=== PATIENT | male | born 1935 | race Caucasian/White ===

== ENCOUNTER 2019-11-15 20:00 | Inpatient (IN) | payer MEDICARE, OTHER ==
[~2019-11-15] VITALS: Ht 182.9 cm; Wt 113.4 kg
[2019-11-15] MEDS ORDERED: ONDANSETRON HCL INJ 2MG/ML 2ML 2 MG/ML VIAL IV STA (20:27)
[2019-11-15] MEDS ORDERED: SODIUM CHLORIDE 0.9% 1000ML 1,000 ML IV SCH ×2 (20:30→23:30)
--- NOTE | 2019-11-15 20:47 | Emergency Department Note ---
History of Present Illnes History of Present Illness Chief Complaint: Abdominal Complaints History of Present Illness This is a 84 year old male Chief Complaint Comment PT C/O ABD PAIN ACROSS LOWER ABD THAT STATED ABOUT 3 DAYS AGO, WITH INCREASING PAIN THIS AM. PT ALSO REPORTS A DECREASE IN APPETITE. DENIES FEVER/CHILLS, NO NAUSEA VOMITING, NO DIARRHEA. Historian: Family Member Arrival Mode: Car Assistant General Manager Required: No Onset (how long ago): day(s) (3) Location: Abdomen Quality: Dull Radiation: Reports non-radiation Severity: moderate Onset quality: gradual Duration (how long): day(s) (3) Timing of current episode: constant Progression: unchanged Chronicity: new Context: Denies recent illness, Denies recent surgery Relieving factors: none Exacerbating factors: none Associated symptoms: Reports denies other symptoms Treatments prior to arrival: none Past Medical/Family History Physician Review I have reviewed the patient's past medical and family history. Any updates have been documented here. Past Medical History Recent Fever: No Clinical Suspicion of Infectio: No New/Unexplained Change in Ment: No Past Medical History: Hypertension, Cancer, Hyperlipedemia Other Medical History: PROSTATE CA, HEART MUMUR, GLACOMA, MACULAR DEGENERATION, HERNIA REPAIR, JASMIN Past Surgical History: Cholecysctectomy, Hernia Repair Social History Physically hurt or threatened: No Review of Systems Review of Systems Constitutional: Reports no symptoms EENTM: Reports no symptoms Cardiovascular: Reports no symptoms Respiratory: Reports no symptoms Gastrointestinal: Reports abdominal pain, Reports nausea Genitourinary: Reports no symptoms Musculoskeletal: Reports no symptoms Integumentary: Reports no symptoms Neurological: Reports no symptoms Psychological: Reports no symptoms Endocrine: Reports no symptoms Hematological/Lymphatic: Reports no symptoms Physical Exam Related Data Allergies: Coded Allergies: No Known Allergies (Unverified , 11/15/19) Triage Vital Signs Vital Signs Date Time Temp Pulse Resp B/P (MAP) Pulse Ox O2 Delivery O2 Flow Rate FiO2 11/15/19 20:29 97.7 75 20 148/88 97 Room Air Vital signs reviewed: Yes Physical Exam CONSTITUTIONAL Constitutional: Present well-developed, Present well-nourished HENT HENT: Present normocephalic, Present atraumatic, Present oropharynx clear/moist, Present nose normal HENT L/R: Present left ext ear normal, Present right ext ear normal EYES Eyes: Reports PERRL, Reports conjunctivae normal NECK Neck: Present ROM normal PULMONARY Pulmonary: Present effort normal, Present breath sounds normal CARDIOVASCULAR Cardiovascular: Present regular rhythm, Present heart sounds normal, Present capillary refill normal, Present normal rate GASTROINTESTINAL Abdominal: Present soft, Present distension, Present tender, Present hernia; Absent bowel sounds normal (Hyperactive) GENITOURINARY Genitourinary: Present exam deferred SKIN Skin: Present warm, Present dry MUSCULOSKELETAL Musculoskeletal: Present ROM normal NEUROLOGICAL Neurological: Present alert, Present oriented x 3, Present no gross motor or sensory deficits PSYCHOLOGICAL Psychological: Present mood/affect normal, Present judgement normal Results Laboratory Lab results reviewed: Yes Imaging Imaging results reviewed: Yes Diagnostics Tests Diagnostic test(s) reviewed: Yes Assessment & Plan Medical Decision Making MDM 84-year-old male presents for abdominal pain 3 days. States his abdomen feels more distended and he has some nausea as well. Initial differential includes volvulus versus hernia versus bowel obstruction versus diverticulitis versus abdominal aortic aneurysm among others. After workup and CT abdomen and pelvis are significant for partial small bowel obstruction. Patient was discussed with Dr. Jackson who has agreed to admit. Reassessment Reassessment time: 23:45 Reassessment Well appearing, NAD Assessment & Plan Final Impression: (1) Partial small bowel obstruction Depart Disposition: ADMITTED Last Vital Signs Date Time Temp Pulse Resp B/P (MAP) Pulse Ox O2 Delivery O2 Flow Rate FiO2 11/15/19 20:33 75 20 107/71 97 Room Air 11/15/19 20:29 97.7 Medications in the ED Sodium Chloride 1,000 ml @ 0 mls/hr Q0M IV ; Start 11/15/19 at 20:30; Stop 11/15/19 at 21:29; Status UNV Ondansetron HCl 4 mg NOW STAT IV ; Start 11/15/19 at 20:27; Stop 11/15/19 at 20:28; Status UNV ELIZABETH BEAL MD Nov 15, 2019 20:47
[2019-11-15 21:05] LABS: BASOPHILS % 0.3 % (0.0-1.0); EOSINOPHILS # (AUTO) 0.1 (0.0-0.4); EOSINOPHILS % 1.2 % (0.0-6.0); HEMATOCRIT 43.2 % (38.2-49.6); HEMOGLOBIN 14.2 g/dL (14.0-18.0); LYMPHOCYTES # (AUTO) 0.9 (1.0-3.2); LYMPHOCYTES % 9.6 % (18.0-39.1); MEAN CORPUSCULAR HEMOGLOBIN 28.7 pg (28-32); MEAN CORPUSCULAR HGB CONC 32.9 g/dL (31-35); MEAN CORPUSCULAR VOLUME 87.4 fL (81-99); MONOCYTES # (AUTO) 0.9 (0.2-0.8); MONOCYTES % 10.3 % (4.4-11.3); NEUTROPHILS # (AUTO) 7.2 (2.1-6.9); NEUTROPHILS % 78.3 % (38.7-80.0); PLATELET COUNT 180 x10e3/uL (140-360); RED BLOOD COUNT 4.94 x10e6/uL (4.3-5.7); RED CELL DISTRIBUTION WIDTH 13.4 % (11.7-14.4)
[2019-11-15 21:23] LABS: ALANINE AMINOTRANSFERASE 32 IU/L (0-55); ALBUMIN 3.8 g/dL (3.5-5.0); ALBUMIN/GLOBULIN RATIO 1.4 (0.8-2.0); ALKALINE PHOSPHATASE 141 IU/L (40-150); ANION GAP 12.9 mmol/L (8-16); BLOOD UREA NITROGEN 15 mg/dL (7-26); BUN/CREATININE RATIO 18 (6-25); CALCIUM 8.2 mg/dL (8.4-10.2); CARBON DIOXIDE 23 mmol/L (22-29); CHLORIDE 107 mmol/L (98-107); CREATININE, SERUM 0.83 mg/dL (0.72-1.25); EST GLOMERULAR FILTRATION RATE > 60 ML/MIN (60-); GLUCOSE 138 mg/dL (74-118); POTASSIUM 3.9 mmol/L (3.5-5.1); SODIUM 139 mmol/L (136-145)
[2019-11-15] MEDS ORDERED: SODIUM CHLORIDE 0.9% 50ML 50 ML ONE (22:23)
[2019-11-15] MEDS ORDERED: IOPAMIDOL 370 MG/ML 200 ML INFUS..BTL INJ ONE (22:23)
--- NOTE | 2019-11-15 22:45 | Diagnostic Imaging Report ---
EXAM: CT Abdomen and Pelvis WITH contrast INDICATION: ^Abdominal pain ^[id number] ^[id number] COMPARISON: None. TECHNIQUE: Abdomen and pelvis were scanned utilizing a multidetector helical scanner from the lung base to the pubic symphysis after administration of IV contrast. Coronal and sagittal reformations were obtained. Dose modulation, iterative reconstruction, and/or weight based adjustment of the mA/kV was utilized to reduce the radiation dose to as low as reasonably achievable. Routine protocol was performed. Scan was performed when during portal venous phase. IV CONTRAST: 100 mL of Isovue-370 ORAL CONTRAST: Water COMPLICATIONS: None RADIATION DOSE: Total DLP: 830.31 mGy*cm Estimated effective dose: (DLP x 0.015 x size factor) mSv CTDIvol has been reviewed. It is below the limits set by the Radiation Protocol Committee (RPC). FINDINGS: LINES and TUBES: None. LOWER THORAX: Partially seen atherosclerotic calcification of coronary arteries and aortic valve. HEPATOBILIARY: No focal hepatic lesions. No biliary ductal dilation. GALLBLADDER: Absent. SPLEEN: Splenomegaly, measuring 13.6 cm. PANCREAS: No focal masses or ductal dilatation. ADRENALS: Questionable tiny right adrenal nodule. No left adrenal nodule. KIDNEYS/URETERS: Kidneys enhance symmetrically. No hydronephrosis. 2.6 cm right renal inferior pole cyst. Another right renal inferior pole 3.1 cm hypodensity with internal attenuation greater than simple fluid. There are additional bilateral renal cysts. No stones. GI TRACT: Multiple dilated air-filled small bowel loops throughout the abdomen along with collapsed distal ileal loops in right lower quadrant. There are diverticula within the colon without evidence of diverticulitis. Appendix is not clearly identified. There is however no fat stranding or adenopathy in the right lower quadrant to suggest appendicitis. PELVIC ORGANS/BLADDER: Unremarkable. LYMPH NODES: No lymphadenopathy. VESSELS: There is mild to moderate atherosclerotic disease in the aorta and major arterial branches. PERITONEUM / RETROPERITONEUM: No free air or fluid. BONES: Age indeterminate T12 vertebral body compression deformity. Generalized demineralization. Degenerative changes of spine. Left iliac sclerotic focus (series 2, image 71), could represent a bone island. Few additional scattered sclerotic foci are visualized. SOFT TISSUES: Unremarkable. IMPRESSION: 1. Findings as described above, concerning for partial small bowel obstruction. Recommend follow-up as clinically indicated. 2. Colonic diverticulosis without evidence of diverticulitis. 3. Multiple right renal cysts. A 3.1 cm right renal inferior pole hypodensity shows internal density greater than simple fluid and could represent a hemorrhagic cyst. Recommend nonurgent renal mass protocol MRI to exclude enhancing component. 4. Prostatomegaly. 5. Age indeterminate T12 vertebral body compression deformity. 6. Left iliac sclerotic focus, could represent a bone island. Recommend bone scan to confirm. Signed by: Dr. Anish Chapin MD on 11/15/2019 10:42 PM
[2019-11-15 23:25] LABS: BILIRUBIN,URINE SMALL (NEGATIVE); CLARITY,URINE CLEAR (CLEAR); COLOR,URINE AMBER (YELLOW); KETONES,URINE NEGATIVE (NEGATIVE); LEUKOCYTE ESTERASE ,URINE NEGATIVE (NEGATIVE); NITRITE,URINE NEGATIVE (NEGATIVE); PROTEIN,URINE DIPSTICK NEGATIVE (NEGATIVE)
[2019-11-15 23:34] LABS: BACTERIA,URINE FEW /HPF; EPITHELIAL CELLS,URINE FEW /LPF; MUCUS,URINE RARE (RARE); RBC,URINE 0-5 /HPF (0-5); WBC,URINE (MAN) 0-5 /HPF (0-5)
[2019-11-16] MEDS ORDERED: ONDANSETRON HCL INJ 2MG/ML 2ML 2 MG/ML VIAL ONE (00:25)
[2019-11-16] MEDS ORDERED: ATORVASTATIN CA40 MG PO (04:17)
[2019-11-16] MEDS ORDERED: BETIMOL5 M1 OU (04:17)
[2019-11-16] MEDS ORDERED: NEOMYC-POLYM-DEX5 ML OU (04:17)
[2019-11-16] MEDS ORDERED: LOSARTAN POTAS100 MG PO (04:17)
[2019-11-16] MEDS ORDERED: AMLODIPINE BESY10 MG PO (04:17)
[2019-11-16] MEDS ORDERED: TAMSULOSIN PO (04:17)
[2019-11-16] MEDS ORDERED: CARVEDILOL25 MG PO (04:17)
[2019-11-16] MEDS ORDERED: TRAVATAN Z5 ML OU (04:17)
[2019-11-16 05:56] LABS: BASOPHILS % 0.1 % (0.0-1.0); EOSINOPHILS % 0.4 % (0.0-6.0); HEMATOCRIT 37.6 % (38.2-49.6); HEMOGLOBIN 12.2 g/dL (14.0-18.0); LYMPHOCYTES # (AUTO) 0.6 (1.0-3.2); LYMPHOCYTES % 7.7 % (18.0-39.1); MEAN CORPUSCULAR HEMOGLOBIN 28.6 pg (28-32); MEAN CORPUSCULAR HGB CONC 32.4 g/dL (31-35); MEAN CORPUSCULAR VOLUME 88.1 fL (81-99); MONOCYTES # (AUTO) 0.8 (0.2-0.8); MONOCYTES % 10.2 % (4.4-11.3); NEUTROPHILS # (AUTO) 6.3 (2.1-6.9); NEUTROPHILS % 81.3 % (38.7-80.0); PLATELET COUNT 121 x10e3/uL (140-360); RED BLOOD COUNT 4.27 x10e6/uL (4.3-5.7); RED CELL DISTRIBUTION WIDTH 13.3 % (11.7-14.4)
[2019-11-16 06:22] LABS: ANION GAP 13.6 mmol/L (8-16); BLOOD UREA NITROGEN 14 mg/dL (7-26); BUN/CREATININE RATIO 20 (6-25); CALCIUM 7.5 mg/dL (8.4-10.2); CARBON DIOXIDE 23 mmol/L (22-29); CHLORIDE 110 mmol/L (98-107); CREATININE, SERUM 0.69 mg/dL (0.72-1.25); EST GLOMERULAR FILTRATION RATE > 60 ML/MIN (60-); GLUCOSE 108 mg/dL (74-118); POTASSIUM 3.6 mmol/L (3.5-5.1); SODIUM 143 mmol/L (136-145)
--- NOTE | 2019-11-16 07:15 | NUR ---
RECEIVED REPORT FROM OFF GOING NURSE. PATIENT IN ROOM IN BED, RESTING QUIETLY WITH EYES CLOSED. EASILY ARROUSED TO NAME. FAMILY IN ROOM AT BEDSIDE. PENDING ROOM ASSIGNMENT FOR ADMISSION.
[2019-11-16] MEDS ORDERED: ONDANSETRON HCL INJ 2MG/ML 2ML 2 MG/ML VIAL IV PRN (10:15)
--- NOTE | 2019-11-16 10:58 | Diagnostic Imaging Report ---
Exam: KUB - 2 views Indication: Small bowel obstruction Comparison: CT abdomen and pelvis 11/15/2019 Findings: Dilated loops of small bowel in the lower abdomen measure up to 4.8 cm maximum diameter. No free air. Surgical clips in the upper abdomen. No acute osseous injury. Degenerative changes of the spine and both hip joints. Residual IV contrast material in the bladder. Impression: Dilated loops of small bowel measuring up to 4.8 cm consistent with known small bowel obstruction. No free air. Signed by: Clarence Alvarado MD on 11/16/2019 10:55 AM
[2019-11-16 11:27] VITALS: BP 124/67
[2019-11-16 11:28] VITALS: BP 124/67
--- NOTE | 2019-11-16 11:28 | NUR ---
1105-PHONE REPORT RECEIVED FROM KULDEEP ALVARADO, ER 1127-PATIENT TRANSPORTED FROM ER TO 299 VIA WHEELCHAIR BY KULDEEP ALVARADO. PATIENT AAOX4 AND ABLE TO WALK AROUND THE ROOM IN NO ACUTE DISTRESS. PATIENT WAS ORIENTED TO UNIT/ROOM/CALL LIGHT. PATIENT REQUESTED TO SIT IN THE RECLINER. PATIENT WAS EDUCATED ON FALL RISK PRECAUTIONS AND PATIENT VERBALIZED UNDERSTANDING. CALL LIGHT AND BELONGINGS PLACED NEARBY. WILL CONTINUE TO MONITOR.
[2019-11-16 11:56] VITALS: BP 124/67
[2019-11-16] MEDS: DEXTROSE 5%/0.45% SOD CHL 1,000 ML IV SCH ×2 (12:00→20:37)
[2019-11-16] MEDS: FAMOTIDINE 20 MG/2 ML VIAL IV SCH ×2 (12:00→17:41)
--- NOTE | 2019-11-16 14:00 | NUR ---
ORDER RECEIVED FOR NG TUBE PLACEMENT TO LWS PER DR. CANO
--- NOTE | 2019-11-16 14:30 | NUR ---
14 FR NG TUBE TO LWS PLACED TO LEFT NARE. TUBE SECURED WITH TAPE.
[2019-11-16] MEDS: SODIUM CHLORIDE 0.9% 250ML IRRIG IR SCH ×3 (15:18→22:45)
--- NOTE | 2019-11-16 17:59 | Consultation ---
DATE OF CONSULTATION: 11/16/2019 CHIEF COMPLAINT: Abdominal pain. HISTORY OF PRESENT ILLNESS: The patient is an 84-year-old male with 4-day history of abdominal distention, nausea, no vomiting, decreased bowel activity. He has passed some flatus, however. No prior episode. PAST MEDICAL HISTORY: Positive for hypertension and hyperlipidemia. PAST SURGICAL HISTORY: Positive for open cholecystectomy, bilateral inguinal hernia repair. ALLERGIES: HE HAS NO DRUG ALLERGIES. SOCIAL HABITS: No smoking or alcohol abuse. REVIEW OF SYSTEMS: No chest pain, shortness of breath, cough, or fevers. PHYSICAL EXAMINATION: VITAL SIGNS: Stable, afebrile. He is awake, alert, in mild to moderate discomfort. HEENT: Sclerae nonicteric. NECK: Supple. LUNGS: Clear. HEART: Regular rate and rhythm. ABDOMEN: Distended with some guarding in the supraumbilical region without any rebound. EXTREMITIES: No cyanosis or edema. LABORATORY DATA: White cell count is 7.6, hemoglobin of 12, platelet count of 121, creatinine is 0.7. CT scan of the abdomen showed dilated loops of small bowel suggestive of intestinal obstruction. ASSESSMENT: Abdominal distention with evidence of intestine obstruction on CT scan. PLAN: Nasogastric tube decompression in place. Plan to follow abdominal x-ray and exam. The patient may need diagnostic laparoscopy with lysis of adhesions. Roni Lozano MD DNL/MODL /[id number]
--- NOTE | 2019-11-16 18:00 | NUR ---
PATIENT STATED "HE SNEEZED AND NG TUBE CAME OUT". 14FRENCH NG TUBE REPLACED TO LWS. PLACEMENT CHECK WITH AIR BUBBLE PER AUSCULTATION. PT EDUCATED ON CALLING NURSE WITH ANY FURTHER NEEDS. PATIENT VERBALIZED UNDERSTANDING.
[2019-11-16] MEDS: HEPARIN SOD (PORCINE) 5,000 UNIT/ML VIAL SC SCH (20:38)
[2019-11-16 20:57] VITALS: BP 133/70
[2019-11-16 21:00] VITALS: BP 133/70
[2019-11-17] VITALS (9 sets, daily range): BP systolic 114–138; BP diastolic 57–77
--- NOTE | 2019-11-17 01:15 | History and Physical ---
PRIMARY CARE PHYSICIAN: Dr. Blake Dickson. CHIEF COMPLAINT: Abdominal pain. HISTORY OF PRESENT ILLNESS: This is an 84-year-old male, who has cholecystectomy and hernia repair in the past, came in with periumbilical abdominal pain for the last 3 to 4 days. It is progressively getting worse. The patient has some nausea, no vomiting, but very little p.o. intake. Last bowel movement was yesterday, however, was very small now. The patient denies a fever. No chest pain. No shortness of breath. The patient does not have history of bowel obstruction in the past. PAST MEDICAL/SURGICAL HISTORY: 1. Hypertension. 2. Hyperlipidemia. 3. Previous cholecystectomy. 4. Previous hernia repair. MEDICATIONS: Please see medication reconciliation form. ALLERGIES: NONE. SOCIAL HISTORY: Does not smoke. FAMILY HISTORY: CHF. REVIEW OF SYSTEMS: A 10-point review of system obtained and nothing else is significant other than what is stated in HPI. PHYSICAL EXAMINATION: VITAL SIGNS: Temperature 97.6, pulse 83, respiratory rate 20, blood pressure 124/67. GENERAL: No acute distress. SKIN: No rash. HEENT: Anicteric. Oropharynx is clear. LUNGS: Clear. HEART: Regular rate and rhythm. Normal S1, S2. GI: Abdomen is soft. Decreased breath sounds. NEUROLOGIC: Alert and oriented x3. Cranial nerves II through XII grossly intact. PSYCHIATRIC: No hallucination. MUSCULOSKELETAL: Painless range of motion. LABORATORY DATA: White count 8, hemoglobin 12, platelet count 121,000. Creatinine 0.7. CT is consistent with small bowel obstruction. ASSESSMENT/PLAN: 1. Small-bowel obstruction. We will keep him n.p.o. We will consult the surgeon. Maintain him on IV fluid with a repeat KUB in the morning. NG tube has been requested by the surgeon. 2. Hypertension, currently stable. 3. Mild thrombocytopenia. We will monitor while the patient is on heparin subcu. 4. GI and DVT prophylaxis. Pepcid IV and heparin subcu. DISPOSITION: The patient may need lysis of adhesion, in that case we may need to consider preop clearance. MD BAO Caicedo/MELISSA /[id number] cc: Blake Dickson
[2019-11-17] MEDS: SODIUM CHLORIDE 0.9% 250ML IRRIG IR SCH ×6 (02:30→21:53)
[2019-11-17] MEDS: DEXTROSE 5%/0.45% SOD CHL 1,000 ML IV SCH ×2 (06:00→17:32)
--- NOTE | 2019-11-17 06:21 | NUR ---
Pt left floor to radiology via wheelchair. NG tube secured and clamped prior to departure.
--- NOTE | 2019-11-17 06:55 | NUR ---
SBAR BEDSIDE REPORT RECEIVED FROM PM SHIFT NURSE. PATIENT FOUND LYING IN BED AAOX4 IN NO ACUTE DISTRESS. NG TUBE TO LEFT NARE CONNECTED TO LWS. PATIENT WAS EDUCATED ON FALL RISK PRECAUTIONS. PATIENT VERBALIZED UNDERSTANDING. CALL LIGHT AND BELONGINGS PLACED NEARBY. WILL CONTINUE TO MONITOR.
[2019-11-17 08:15] LABS: BASOPHILS % 0.4 % (0.0-1.0); EOSINOPHILS # (AUTO) 0.1 (0.0-0.4); EOSINOPHILS % 2.4 % (0.0-6.0); HEMOGLOBIN 13.8 g/dL (14.0-18.0); LYMPHOCYTES # (AUTO) 0.8 (1.0-3.2); LYMPHOCYTES % 14.4 % (18.0-39.1); MEAN CORPUSCULAR HEMOGLOBIN 28.5 pg (28-32); MEAN CORPUSCULAR HGB CONC 32.9 g/dL (31-35); MEAN CORPUSCULAR VOLUME 86.6 fL (81-99); MONOCYTES # (AUTO) 0.8 (0.2-0.8); MONOCYTES % 15.1 % (4.4-11.3); NEUTROPHILS # (AUTO) 3.7 (2.1-6.9); NEUTROPHILS % 67.5 % (38.7-80.0); PLATELET COUNT 122 x10e3/uL (140-360); RED BLOOD COUNT 4.85 x10e6/uL (4.3-5.7); RED CELL DISTRIBUTION WIDTH 12.9 % (11.7-14.4)
--- NOTE | 2019-11-17 08:47 | Diagnostic Imaging Report ---
Abdomen one view INDICATION: ^sbo ^[id number] ^[id number] Comparison: X-ray dated 11/[address] dated 11/14. Discussion: Similar to prior exams there are multiple mildly prominent small bowel loops in the mid to lower abdomen. Small bowel loops are identified measuring up to 5.9 cm. Postsurgical changes are identified in the upper abdomen. The enteric tube is identified with tip and sidehole within the distal esophagus. Lung bases are clear. IMPRESSION: 1. Persistent small bowel loop dilatation. 2. Enteric tube is identified with tip and sidehole projecting within the distal esophagus. Recommend advancement. Signed by: Jus Sepulveda MD on 11/17/2019 8:44 AM
[2019-11-17] MEDS: HEPARIN SOD (PORCINE) 5,000 UNIT/ML VIAL SC SCH ×2 (09:00→21:00)
[2019-11-17] MEDS: FAMOTIDINE 20 MG/2 ML VIAL IV SCH ×2 (09:19→17:00)
[2019-11-17] MEDS ORDERED: BENZOCAINE 20% SPR 60 ML CAN MT ONE (09:30)
[2019-11-17] MEDS ORDERED: FENTANYL CITRATE/PF 100MCG/2 ML INJ ONE ×2 (13:38→16:59)
--- NOTE | 2019-11-17 14:27 | NUR ---
PT OFF THE FLOOR FOR SURGERY
[2019-11-17] MEDS ORDERED: BUPIVACAINE HCL 0.5% INJ 30 ML VIAL INJ ONE (15:01)
[2019-11-17] MEDS ORDERED: MORPHINE SULFATE INJ 4 MG/ML INJ 1ML IV PRN (16:30)
[2019-11-17] MEDS ORDERED: LORAZEPAM INJ 2 MG/ML VIAL IV PRN (16:45)
--- NOTE | 2019-11-17 17:20 | NUR ---
PHONE REPORT RECEIVED FROM OR NURSE, PITER. PATIENT RECEIVED BACK TO ROOM WITH NG TUBE CLAMPED. NG TUBE WAS CONNECTED TO LWS. PATIENT WAS PROVIDED WITH ICE CHIPS AND SMALL SIPS OF WATER. PATIENT WAS RECONNECTED TO CONTINUOUS IV FLUIDS. PAIN LEVEL 2/10 ON ADULT PAIN SCALE. CALL LIGHT AND BELONGINGS PLACED NEARBY. WILL CONTINUE TO MONITOR.
[2019-11-17] MEDS ORDERED: NEOSTIGMINE 1 MG/ML 10ML VIAL ONE (17:50)
[2019-11-17] MEDS ORDERED: SEVOFLURANE INHAL SOLN 250 ML PEN BTL ONE (17:50)
[2019-11-17] MEDS ORDERED: LIDOCAINE HCL 2% LOCAL INJ 5 ML SDV VIAL INJ ONE (17:50)
[2019-11-17] MEDS ORDERED: ROCURONIUM BROMIDE 10 MG/ML 5ML VIAL IV ONE (17:50)
[2019-11-17] MEDS ORDERED: SUCCINYLCHOLINE CHLORIDE 20 MG/ML 10ML VIAL ONE (17:50)
[2019-11-17] MEDS ORDERED: ONDANSETRON HCL INJ 2MG/ML 2ML 2 MG/ML VIAL ONE (17:50)
[2019-11-17] MEDS ORDERED: GLYCOPYRROLATE INJ 0.2 MG/ML VIAL ONE (17:50)
[2019-11-17] MEDS ORDERED: PROPOFOL IV EMULSION 10 MG/ML 20 ML VIAL ONE (17:50)
[2019-11-17] MEDS ORDERED: DEXAMETHASONE SOD PHOS INJ 4 MG/ML VIAL ONE (17:50)
--- NOTE | 2019-11-17 20:32 | NUR ---
Pt had diagnostic lap and hernia repair this afternoon. Heparin 5,000 SubQ scheduled for 2100. Paged surgery to clarify if the blood thinner is ok to be administered post surgery. Awaiting yong back.
--- NOTE | 2019-11-17 20:36 | NUR ---
Received call back from Dr. Lozano. New orders received to hold 11/17/19 2100 dose of Heparin and resume in AM (11/18/19).
--- NOTE | 2019-11-17 20:57 | Progress Note ---
DATE: 11/17/2019 SUBJECTIVE: Same. No new complaints. OBJECTIVE: VITAL SIGNS: Temperature 97.6, pulse 68, respiratory rate 16, blood pressure 108/65. GENERAL: No acute distress. SKIN: No rash. LUNGS: Clear. HEART: Regular rate and rhythm. Normal S1, S2. GI: Abdomen is soft, decreased bowel sounds. NEUROLOGIC: Alert and oriented x3. PSYCHIATRIC: No hallucination. LABORATORY DATA: White count 5, hemoglobin 13.8, platelet count 122 and PTT 36. ASSESSMENT AND PLAN: 1. Small-bowel obstruction. Discussed with Dr. Lozano. The patient will undergo lyses of adhesion and a hernia repair. 2. Hypertension acceptable. 3. Blood sugar acceptable. 4. Mild thrombocytopenia stable. 5. GI and DVT prophylaxis. No chemical DVT prophylaxis due to thrombocytopenia. MD BAO Caicedo/MELISSA /[id number]
--- NOTE | 2019-11-17 21:43 | Operative Report ---
DATE OF PROCEDURE: 11/17/2019 SURGEON: Roni Lozano MD PREOPERATIVE DIAGNOSIS: Intestinal obstruction and incisional hernia. POSTOPERATIVE DIAGNOSIS: Intestinal obstruction and incisional hernia. OPERATIVE PROCEDURES: 1. Diagnostic laparoscopy. 2. Lysis of adhesions. 3. Repair of incisional hernia. ANESTHESIA: General. INDICATIONS: An 84-year-old male with history of abdominal pain, bloating, and nausea with CT scan show evidence of partial high-grade small bowel obstruction. He consented for repair of incisional hernia and possible lysis of adhesions. PROCEDURE FINDING: Partial bowel obstruction from adhesions and incisional hernia in the left paraumbilical region. DESCRIPTION OF PROCEDURE: The patient was brought to the OR, intubated. The abdomen was prepped and draped in sterile fashion. A direct left subcostal port access is carried out with a laparoscope. Insufflation then began. Under direct vision, adhesion was noted from prior operation. Using extra port in the left flank, we proceeded to take down the adhesion with the LigaSure instrument, avoiding any injury to the bowel. The patient has a left supraumbilical incisional hernia, which was taken down with blunt and sharp dissection with the help of the LigaSure instrument. The fascial defect measured approximately 3 cm in diameter. The small bowel was then run from the ileocecal valve in a retrograde fashion. Adhesion was noted approximately 30-40 cm from the ileocecal valve with adhesions to the other loops of small bowel as well as to the transverse colon was noted, and this adhesion was taken down with the LigaSure, completely straighten out the small bowel, which was then ran all the way back to the ligament of Treitz without any further kinking or twisting. At this point, we proceeded to replace the omentum anteriorly and remove all ports under direct vision. The incisional hernia was then closed in a transverse direction using running 0-Prolene suture with interrupted 0-Vicryl, and skin closed with keo. The patient was extubated and transported to the recovery room. ESTIMATED BLOOD LOSS: 10 mL. Roni Lozano MD DNL/MODL /[id number]
[2019-11-18] VITALS (8 sets, daily range): BP systolic 113–147; BP diastolic 61–97
[2019-11-18] MEDS: DEXTROSE 5%/0.45% SOD CHL 1,000 ML IV SCH ×3 (02:39→20:34)
[2019-11-18] MEDS: SODIUM CHLORIDE 0.9% 250ML IRRIG IR SCH ×4 (02:45→14:45)
[2019-11-18 06:07] LABS: BASOPHILS % 0.2 % (0.0-1.0); HEMATOCRIT 42.3 % (38.2-49.6); HEMOGLOBIN 14.1 g/dL (14.0-18.0); LYMPHOCYTES # (AUTO) 0.7 (1.0-3.2); LYMPHOCYTES % 8.2 % (18.0-39.1); MEAN CORPUSCULAR HEMOGLOBIN 28.7 pg (28-32); MEAN CORPUSCULAR HGB CONC 33.3 g/dL (31-35); MONOCYTES # (AUTO) 0.7 (0.2-0.8); MONOCYTES % 7.7 % (4.4-11.3); NEUTROPHILS # (AUTO) 7.2 (2.1-6.9); NEUTROPHILS % 83.5 % (38.7-80.0); PLATELET COUNT 182 x10e3/uL (140-360); RED BLOOD COUNT 4.92 x10e6/uL (4.3-5.7); RED CELL DISTRIBUTION WIDTH 12.9 % (11.7-14.4)
[2019-11-18 06:21] LABS: ANION GAP 14.9 mmol/L (8-16); BLOOD UREA NITROGEN 9 mg/dL (7-26); BUN/CREATININE RATIO 14 (6-25); CARBON DIOXIDE 21 mmol/L (22-29); CHLORIDE 107 mmol/L (98-107); CREATININE, SERUM 0.66 mg/dL (0.72-1.25); EST GLOMERULAR FILTRATION RATE > 60 ML/MIN (60-); GLUCOSE 114 mg/dL (74-118); POTASSIUM 3.9 mmol/L (3.5-5.1); SODIUM 139 mmol/L (136-145)
--- NOTE | 2019-11-18 07:00 | NUR ---
SBAR BEDSIDE REPORT RECEIVED FROM PM SHIFT RN. PATIENT FOUND LYING IN BED HOB UP 30 DEGREES. NG TUBE PATENT AND DRAINING DARK BROWN DRAINAGE. PATIENT AAOX4 AND ABLE TO MAKE NEEDS KNOWN. PATIENT EDUCATED ON FALL RISK PRECAUTIONS AND VERBALIZED UNDERSTANDING. CALL LIGHT AND BELONGINGS PLACED NEARBY. I WILL CONTINUE TO MONITOR.
--- NOTE | 2019-11-18 08:45 | Diagnostic Imaging Report ---
Abdomen one view INDICATION: ^SBO ^[id number] ^[id number] Comparison: X-rays dated 11/[address] 11/[address] dated 11/14. Discussion: Enteric tube is identified with tip and sidehole projecting within distal stomach. There is mild to moderate gaseous distention of the colon. Previously identified prominent small bowel loops have improved. Largest small bowel loops measure up to 4.6 cm in the right lower quadrant. Stool is identified within the ascending colon. Negative for acute osseous abnormality. Stable cholecystectomy clips in the right upper quadrant. IMPRESSION: 1. Persistent small bowel loop dilatation measuring up to 4.6 cm. Gaseous distention of the transverse colon is noted along with stool within the proximal colon suggesting partial obstruction. 2. Enteric tube is identified with tip and sidehole within the distal stomach. Signed by: Jus Sepulveda MD on 11/18/2019 8:42 AM
[2019-11-18] MEDS: FAMOTIDINE 20 MG/2 ML VIAL IV SCH ×2 (09:38→18:44)
[2019-11-18] MEDS: HEPARIN SOD (PORCINE) 5,000 UNIT/ML VIAL SC SCH ×2 (09:40→20:35)
--- NOTE | 2019-11-18 10:30 | NUR ---
I RECEIVED A CALL FROM DR. CANO. ORDERS RECEIVED TO CLAMP NG TUBE, CLEAR LIQUID DIET, AND RECONNECT NG TUBE TO LWS CONTINUOUS SUCTION IF NAUSEA RECURS. DIETARY MADE AWARE OF DIET CHANGE.
--- NOTE | 2019-11-18 14:10 | NUR ---
PT OFF THE FLOOR FOR MRI
--- NOTE | 2019-11-18 16:30 | NUR ---
NG TUBE REMOVED PER MD ORDER FROM DR. CANO. PATIENT TOLERATING CLEAR LIQUIDS. PT DENIES PAIN AND NAUSEA
[2019-11-18] MEDS ORDERED: FLOMAX0.4 MG PO (16:56)
[2019-11-18] MEDS: TAMSULOSIN HCL 0.4 MG CAP PO SCH (17:00)
--- NOTE | 2019-11-18 22:47 | Progress Note ---
DATE: 11/18/2019 SUBJECTIVE: Just had some clear liquid diet, so far okay. OBJECTIVE: VITAL SIGNS: Afebrile. Vital signs stable. GENERAL: No acute distress. SKIN: No rash. HEENT: Nasogastric tube in place. LUNGS: Clear. HEART: Regular rate and rhythm. Normal S1 and S2. GI: Abdomen is soft. Decreased breath sounds. NEUROLOGIC: Alert and oriented x3. PSYCHIATRIC: No hallucination. ASSESSMENT AND PLAN: 1. Small bowel obstruction, postop day #1 with lysis of adhesion and hernia repair. Continue NG tube and diet per surgeon. We will continue to monitor. 2. Hypertension, acceptable. 3. Gastrointestinal and deep venous thrombosis prophylaxis. No chemical deep venous thrombosis prophylaxis due to recent surgery. MD BAO Caicedo/MELISSA /[id number]
[2019-11-19] VITALS (8 sets, daily range): BP systolic 118–162; BP diastolic 66–86
--- NOTE | 2019-11-19 07:04 | NUR ---
BEDSIDE SHIFT REPORT RECEIVED FROM PM NURSE. PT AWAKE, ALERT, IN STABLE CONDITION.
[2019-11-19] MEDS: TAMSULOSIN HCL 0.4 MG CAP PO SCH (07:45)
[2019-11-19] MEDS: DEXTROSE 5%/0.45% SOD CHL 1,000 ML IV SCH ×2 (07:45→20:06)
[2019-11-19] MEDS: FAMOTIDINE 20 MG/2 ML VIAL IV SCH (07:45)
[2019-11-19] MEDS: HEPARIN SOD (PORCINE) 5,000 UNIT/ML VIAL SC SCH ×2 (07:47→20:51)
--- NOTE | 2019-11-19 08:06 | NUR ---
pt c/o lower abd pain and penile pain with full bladder. bladder scan showed [address] Jackson for orders
--- NOTE | 2019-11-19 08:27 | NUR ---
vega placed per Dr. Jackson's orders; 1100 cc output. pt states his pain is relieved. order given to add Dr. Foster as consult.
[2019-11-19 09:25] LABS: BILIRUBIN,URINE NEGATIVE (NEGATIVE); CLARITY,URINE CLEAR (CLEAR); COLOR,URINE YELLOW (YELLOW); KETONES,URINE NEGATIVE (NEGATIVE); LEUKOCYTE ESTERASE ,URINE NEGATIVE (NEGATIVE); NITRITE,URINE NEGATIVE (NEGATIVE); PROTEIN,URINE DIPSTICK NEGATIVE (NEGATIVE)
[2019-11-19 09:41] LABS: BACTERIA,URINE RARE /HPF; EPITHELIAL CELLS,URINE FEW /LPF; RBC,URINE 21-50 /HPF (0-5)
[2019-11-19] MEDS ORDERED: ACETAMINOPHEN 325 MG TAB PO PRN (10:15)
--- NOTE | 2019-11-19 17:09 | NUR ---
report given to JENNY Justice for transfer of care. pt to be transferred to room 114.
--- NOTE | 2019-11-19 17:59 | NUR ---
pt arrived to room 114 with RN via wheelchair. pt in stable condition, vega in place, intact, patent, draining to gravity. no s/s distress.
--- NOTE | 2019-11-19 18:10 | NUR ---
ARRIVED TO AAOX3 , NO DISTRESS NOTED, UPDATED ON POC VOICED UNDERSTANDING, NO DISTRESS NOTED, ABDOMEN LARGE,DISTENDED NONTENDER, 6 TROCHAR SITES NOTED TO ABDOMEN C/D/I, MOTLEY TO BSD WITH YELLOW URINE NOTED, NO OTHER CO VOICED CALL LIGHT IN REACH WILL CONTINUE TO MONITOR
--- NOTE | 2019-11-19 21:45 | Progress Note ---
DATE: 11/19/2019 SUBJECTIVE: Cannot urinate on his own. The patient was able to tolerate clear liquid diet and his NG tube has been discontinued. OBJECTIVE: VITAL SIGNS: Temperature 97.5, pulse 78, respiratory rate 16, and blood pressure 118/75. GENERAL: No acute distress. SKIN: No rash. LUNGS: Clear. HEART: Regular rate and rhythm. Normal S1 and S2. GI: Abdomen is soft and nondistended. NEUROLOGIC: Alert and oriented x3. PSYCHIATRIC: No hallucination. ASSESSMENT AND PLAN: 1. Small-bowel obstruction. Postop day #2 with lysis of adhesion and hernia repair. We will continue diet per surgeon. The patient seems to be improving. 2. Urinary retention with history of prostate cancer. Discussed with Dr. Foster, Urology, whom we will consult. We will also check a PSA plus day-specific antigen. We will continue Griffith catheter. 3. Hypertension, susceptible. 4. Gastrointestinal and deep vein thrombosis prophylaxis. No chemical DVT prophylaxis due to recent surgery. MD BAO Caicedo/MELISSA /[id number]
[2019-11-20] VITALS (8 sets, daily range): BP systolic 112–161; BP diastolic 61–81
[2019-11-20] MEDS: DEXTROSE 5%/0.45% SOD CHL 1,000 ML IV SCH ×2 (06:00→17:30)
--- NOTE | 2019-11-20 09:33 | NUR ---
pt in retention will start floma bid and give voiding trial in am if unable to urinate or does not empty bladder well will snd home with catheter to be follow in office
--- NOTE | 2019-11-20 10:02 | Consultation ---
DATE OF CONSULTATION: Consultation to Dr. Lozano and Dr. Jackson. REASON FOR CONSULTATION: Urinary retention. HISTORY: An 84-year-old male, admitted to the hospital for a recurrent umbilical hernia. The patient underwent surgery and has been in retention since surgery. Of interest, is that the patient states that he has had problems urinating for 5-6 days before coming to the hospital and that finally after he was treated with surgery, he was in total retention, problems urinating were voiding small amounts, frequency and feeling of incomplete voiding. PAST MEDICAL HISTORY: Hypertension, hyperlipidemia, cholecystectomy, previous umbilical hernia repair, and previous transurethral resection of the prostate approximately 20 years ago and five history of prostate cancer diagnosed in 2017, and glaucoma. ALLERGIES: NONE. SOCIAL HISTORY: He does not smoke. He has had two children and lives by himself in an extended living home. MEDICATION: He takes tamsulosin once a day, ondansetron once a day, Tylenol as needed, lorazepam at night, and famotidine once a day. The patient takes amlodipine besylate 10 mg, atorvastatin 40 mg, carvedilol 25 mg, losartan potassium 100 mg, timolol drops for his eye, and Travatan Z also drops on his eye. 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 Penis is uncircumcised. Indwelling Griffith catheter in place. Rectal examination reveals a 45-50 g prostate hard. Previous urological history, cancer of the prostate diagnosed in 2017, four biopsy positive, all four biopsies more than 50% with cancer. All of them were on the right side. One of them is a 3+4. The patient requested no therapy at that time. IMPRESSION: Urinary retention, acute. RECOMMENDATION: Voiding trial in the morning. Start tamsulosin b.i.d., if the patient is able to urinate and empty the bladder tomorrow, he will go home without a catheter. If he cannot urinate or has high residuals, then he will go home with a Griffith catheter and I will follow up in the office. Thank you very much for allowing me to see this patient in consultation with you. MD DAVE Cano/MELISSA /[id number]
[2019-11-20] MEDS: TAMSULOSIN HCL 0.4 MG CAP PO SCH ×2 (10:14→21:00)
[2019-11-20] MEDS: HEPARIN SOD (PORCINE) 5,000 UNIT/ML VIAL SC SCH ×2 (10:14→21:00)
--- OUTSIDE RECORDS SUMMARY | 2019-11-20 15:25 | XMS REPORT | Continuity of Care Document ---
Author Author [facility] t Organization [facility] Address [address] [place] [address] Dr. Cruz. [address] [place] [address] Phone Unavailable Care Team Providers Care Power And Recovery Superintendent Name Role Phone Rohit BRICEÑO Attphys Unavailable Rohit BRICEÑO Admphys Unavailable Problems This patient has no known problems. Allergies, Adverse Reactions, Alerts This patient has no known allergies or adverse reactions. Medications This patient has no known medications. Procedures This patient has no known procedures. Results Test Description Test Time Test Comments Results Result Comments Source ABDOMEN-1VIEW (JADA) 2019-11-18 08:38:[address] [address] Patient Name: ANGELIKA LEHMAN MR #: [id number] : 1935 Age/Sex: 84/M Req #: [id number] [facility] Physician: PRIETO BRICEÑO MD Ordered by: PRIETO BRICEÑO MD Report #: [id number] Location: [facility] Room/Bed: [facility] Procedure: [id number] DX/ABDOMEN-1VIEW (RUST) Exam Date: 11/18/19 Exam Time: 726 REPORT STATUS: Signed Abdomen one view INDICATION: SBO [id number] Comparison: X-rays dated 11/16 11/[address] dated 11/14. Discussion: Enteric tube is identified with tip and sidehole projecting within distal stomach. There is mild to moderate gaseous distention of the colon. Previously identified prominent small bowel loops have improved. Largest small bowel loops measure up to 4.6 cm in the right lower quadrant. Stool is identified within the ascending colon. Negative for acute osseous abnormality. Stable cholecystectomy clips in the right upper quadrant. IMPRESSION: 1. Persistent small bowel loop dilatation measuring up to 4.6 cm. Gaseous distention of the transverse colon is noted along with stool within the proximal colon suggesting partial obstruction. 2. Enteric tube is identified with tip and sidehole within the distal stomach. Signed by: Tonie Sepulveda MD on 11/18/2019 8:42 AM Dictated By: TONIE SEPULVEDA MD 1 Transcribed By: ADIN on 11/18/19841 COPY TO: PRIETO BRICEÑO MD ABDOMEN-1VIEW (KU) 2019-11-17 08:42:00 [place] [address] Patient Name: ANGELIKA LEHMAN MR #: [id number] : 1935 Age/Sex: 84/M Req #: [id number] Adm Physician: PRIETO BRICEÑO MD Ordered by: LIA CANO MD Report #: [id number] Location: [facility] Room/Bed: [facility] Procedure: [id number] DX/ABDOMEN-1VIEW (KU) Exam Date: 11/17/19 Exam Time: 614 REPORT STATUS: Signed Abdomen one view INDICATION: sbo [id number] Comparison: X-ray dated 11/[address] dated 11/14. Discussion: Similar to prior exams there are multiple mildly prominent small bowel loops in the mid to lower abdomen. Small bowel loops are identi fied measuring up to 5.9 cm. Postsurgical changes are identified in the upper abdomen. The enteric tube is identified with tip and sidehole within the distal esophagus. Lung bases are clear. IMPRESSION: 1. Persistent small bowel loop dilatation. 2. Enteric tube is identified with tip and sidehole projecting within the distal esophagus. Recommend advancement. Signed by: Tonie Sepulveda MD on 11/17/2019 8:44 AM Dictated By: TONIE SEPULVEDA MD 3 Transcribed By: ADIN on 11/17/19843 COPY TO: LIA CANO MD ABDOMEN-1VIEW (KUB) 2019-11-16 10:54:00 [place] [address] Patient Name: ANGELIKA LEHMAN MR #: [id number] : 1935 Age/Sex: 84/M Req #: [id number] Adm Physician: PRIETO BRICEÑO MD Ordered by: PRIETO BRICEÑO MD Report #: [id number] Location: [facility] Room/Bed: [place] [address] Procedure: [id number] DX/ABDOMEN-1VIEW (KUB) Exam Date: 11/16/19 Exam Time: 1030 REPORT STATUS: Signed Exam: KUB - 2 views Indication: Small bowel obstruction Comparison: CT abdomen and pelvis 11/15/2019 Findings: Dilated loops of small bowel in the lower abdomen measure up to 4.8 cm maximum diameter. No free air. Surgical clips in the upper abdomen. No acute osseous injury. Degenerative changes of the spine and both hip joints. Residual IV contrast material in the bladder. Impression: Dilated loops of small bowel measuring up to 4.8 cm consistent with known small bowel obstruction. No free air. Signed by: Armani Wynn MD on 11/16/2019 10:55 AM Dictated By: ARMANI WYNN MD 54 Transcribed By: ADIN on 11/16/191054 COPY TO: PRIETO BRICEÑO MD CT ABDOMEN/PELVIS W 2019-11-15 22:26:00 [place] [address] Patient Name: ANGELIKA LEHMAN MR #: [id number] : 1935 Age/Sex: 84/M Req #: [id number] Adm Physician: Ordered by: Elizabeth Kaufman MD Report #: [id number] Location: ER Room/Bed: Procedure: [id number] CT/CT ABDOMEN/PELVIS W Exam Date: 11/15/19 Exam Time: 2149 REPORT STATUS: Signed EXAM: CT Abdomen and Pelvis WITH contrast INDICATION: Abdominal pain [id number] COMPARISON: None. TECHNIQUE: Abdomen and pelvis were scanned utilizing a multidetector helical scanner from the lung base to the pubic symphysis after administration of IV contrast. Coronal and sagittal reformations were obtained. Dose modulation, iterative reconstruction, and/or weight based adjustment of the mA/kV was utilized to reduce the radiation dose to as low as reasonably achievable. Routine protocol was performed. Scan was performed when during portal venous phase. IV CONTRAST: 100 mL of Isovue-370 ORAL CONTRAST: Water COMPLICATIONS: None RADIATION DOSE: Total DLP: 830.31 mGy*cm Estimated effective dose: (DLP x 0.015 x size factor) mSv CTDIvol has been reviewed. It is below the limits set by the Radiation Protocol Committee (RPC). FINDINGS: LINES and TUBES: None. LOWER THORAX: Partially seen atherosclerotic calcification of coronary arteries and aortic valve. HEPATOBILIARY: No focal hepatic lesions. No biliary ductal dilation. GALLBLADDER: Absent. SPLEEN: Splenomegaly, measuring 13.6 cm. PANCREAS: No focal masses or ductal dilatation. ADRENALS: Questionable tiny right adrenal nodule. No left adrenal nodule. KIDNEYS/URETERS: Kidneys enhance symmetrically. No hydronephrosis. 2.6 cm right renal inferior pole cyst. Another right renal inferior pole 3.1 cm hypodensity with internal attenuation greater than simple fluid. There are additional bilateral renal cysts. No stones. GI TRACT: Multiple dilated air-filled small bowel loops throughout the abdomen along with collapsed distal ileal loops in right lower quadrant. There are diverticula within the colon without evidence of diverticulitis. Appendix is not clearly identified. There is however no fat stranding or adenopathy in the right lower quadrant to suggest appendicitis. PELVIC ORGANS/BLADDER: Unremarkable. LYMPH NODES: No lymphadenopathy. VESSELS: There is mild to moderate atherosclerotic disease in the aorta and major arterial branches. PERITONEUM / RETROPERITONEUM: No free air or fluid. BONES: Age i ndeterminate T12 vertebral body compression deformity. Generalized demineralization. Degenerative changes of spine. Left iliac sclerotic focus (series 2, image 71), could represent a bone island. Few additional scattered sclerotic foci are visualized. SOFT TISSUES: Unremarkable. IMPRESSION: 1. Findings as described above, concerning for partial small bowel obstruction. Recommend follow-up as clinically indicated. 2. Colonic diverticulosis without evidence of diverticulitis. 3. Multiple right renal cysts. A 3.1 cm right renal inferior pole hypodensity shows internal density greater than simple fluid and could represent a hemorrhagic cyst. Recommend nonurgent renal mass protocol MRI to exclude enhancing component. 4. Prostatomegaly. 5. Age indeterminate T12 vertebral body compression deformity. 6. Left iliac sclerotic focus, could represent a bone island. Recommend bone scan to confirm. Signed by: Dr. Anish Coats MD on 11/15/2019 10:42 PM Dictated By: ANISH COATS MD 41 Transcribed By: ADIN on 11/15/192241 COPY TO: ELIZABETH KAUFMAN MD
[2019-11-20] MEDS ORDERED: DEXAMETHASONE OP PRN (16:45)
[2019-11-20] MEDS ORDERED: NEOMYCIN OP PRN (16:45)
[2019-11-20] MEDS ORDERED: POLYMYXIN B OP PRN (16:45)
[2019-11-20] MEDS ORDERED: NON-FORMULARY MEDICATION (Timolol (Betimol) 1 DROP) OU SCH (17:00)
[2019-11-20] MEDS: TIMOLOL MALEATE 0.5% OPTH DRP 5 ML BTL OU SCH (21:00)
[2019-11-20] MEDS: TRAVOPROST(OPTH) 2.5 ML BTL OP SCH (21:17)
[2019-11-21] VITALS (9 sets, daily range): BP systolic 109–145; BP diastolic 67–84
--- NOTE | 2019-11-21 00:25 | Progress Note ---
DATE: 11/20/2019 SUBJECTIVE: Tolerating soft diet. OBJECTIVE: VITAL SIGNS: Temperature 97.8, pulse 86, respiratory rate 20, blood pressure 145/80. GENERAL: No acute distress. SKIN: No rash. LUNGS: Clear. HEART: Regular rate and rhythm. Normal S1 and S2. GI: Abdomen is soft, nondistended. NEUROLOGIC: Alert and oriented x3. PSYCHIATRIC : No hallucination. LABORATORY DATA: No new labs. ASSESSMENT AND PLAN: 1. Small bowel obstruction. Postop day #3 with lysis of adhesion and hernia repair. We will continue to advance diet per surgeon. The patient is progressing. 2. Urinary retention with history of prostate cancer. We will do a voiding trial tomorrow. 3. Hypertension, acceptable. 4. Gastrointestinal and deep venous thrombosis prophylaxis. Heparin subcu. MD BAO Caicedo/MELISSA /[id number]
--- NOTE | 2019-11-21 06:25 | NUR ---
PATIENT ACCIDENTALLY STEPPED ON MOTLEY CATHETER TUBING WHILE AMBULATING. PATIENTS URINE NOTED TO CHANGE COLOR FROM YELLOW TO RED. NOTIFIED DR. CAMPOS, ORDERS RECEIVED TO CONTINUE WITH MOTLEY CATHETER REMOVAL.
--- NOTE | 2019-11-21 06:28 | NUR ---
MOTLEY CATHETER REMOVED PER MD BEDOYA
--- NOTE | 2019-11-21 06:50 | NUR ---
BEDSIDE REPORT GIVEN TO SAKSHI ALVARADO
[2019-11-21] MEDS: HEPARIN SOD (PORCINE) 5,000 UNIT/ML VIAL SC SCH (09:00)
[2019-11-21] MEDS: TAMSULOSIN HCL 0.4 MG CAP PO SCH ×2 (09:07→20:28)
--- NOTE | 2019-11-21 10:41 | NUR ---
Patient is dripping bloody urine, done a bladder scan 280ml, notified Dr Foster's office, Spoke to his INFORMATION TECHNOLOGY DATA ANALYST.
--- NOTE | 2019-11-21 11:40 | NUR ---
Patient urinated X2 this time done a bladder scan 89cc, Notified LUG LOADER of Dr Foster, No new orders
[2019-11-21] MEDS: TIMOLOL MALEATE 0.5% OPTH DRP 5 ML BTL OU SCH ×2 (13:26→20:58)
--- NOTE | 2019-11-21 13:43 | Progress Note ---
DATE: 11/21/2019 The patient today is doing well. Earlier in the day, the patient supposedly went to get up and stepped on his Griffith catheter. The Griffith catheter then started bleeding. The nurses did call me and I told them to remove the Griffith catheter that was probably not in the right place anyway. The patient at the time of my visit had urinated twice. He had a postvoid residual of 89 mL. At the time that I was there, he had urinated again. I had asked the nurses to wait till next urination to check his postvoid again to make sure he is not retaining because he has clots in his bladder. I also discussed the case with Dr. Jackson and if the patient is emptying his bladder, he may go home tomorrow. Otherwise, he will need an indwelling Griffith catheter and irrigation of clots. MD DAVE Cano/MODL /[id number]
[2019-11-21] MEDS ORDERED: CITRATE OF MAGNESIA 300ML BOTTLE PO ONE (18:00)
[2019-11-21] MEDS ORDERED: BISACODYL 5 MG TAB EC PO ONE (20:00)
--- NOTE | 2019-11-21 20:13 | NUR ---
RECEIVED PT IN IN CHAIR ,HELPED PT TO THE BED C/O COLD GIVEN WARM BLANKET ,DENIES PAIN ,CALL LIGHT WITH IN REACH ,CONTINUE TO MONITOR
[2019-11-21] MEDS ORDERED: LACTULOSE SYRUP 20 GM/30 ML UDC PO ONE (20:15)
[2019-11-21] MEDS: TRAVOPROST(OPTH) 2.5 ML BTL OP SCH (20:58)
[2019-11-21] MEDS: BISACODYL 10 MG SUPP PR ONE (21:22)
--- NOTE | 2019-11-21 22:55 | Progress Note ---
DATE: 11/21/2019 SUBJECTIVE: The patient was able to voice after Griffith catheter was removed, although he does have a little bit of hematuria. OBJECTIVE: VITAL SIGNS: Temperature 97.6, pulse 106, respiratory rate 12, and blood pressure 130/84. GENERAL: No acute distress. SKIN: No rash. LUNGS: Clear. HEART: Regular rhythm. Normal S1 and S2. GI: Soft and nondistended. NEUROLOGIC: Alert and oriented x3. PSYCHIATRIC: No hallucination. LABORATORY DATA: No new labs. ASSESSMENT AND PLAN: 1. Small bowel obstruction. Postop day #4 lysis of adhesion and hernia repair. The patient is progressing well. 2. Urinary retention with history of prostate cancer. We will monitor his postvoid residual and also hematuria. We will continue Flomax. Urology is following. PSA is pending. 3. Hypertension acceptable. 4. Gastrointestinal and deep vein thrombosis prophylaxis. We will discontinue heparin subcu given mild hematuria. 5. Constipation. We will give laxative. MD BAO Caicedo/MELISSA /[id number]
[2019-11-22] VITALS (8 sets, daily range): BP systolic 96–160; BP diastolic 45–88
--- NOTE | 2019-11-22 03:58 | NUR ---
PT IS TRANSFERRED FROM ER AO .RESPIRATIONS ARE EVEN AND UN LABORED DENIES CHEST PAIN NOW .[facility] WITH IST DEGREE BLOCK ORIENTED THE PT TO THE ENVIRONMENT .PHYSICAL ASSESSMENT DONE .PT RESTING ,CALL LIGHT WITH IN REACH ,CONTINUE TO MONITOR``` Addendum: 11/22/19 at 0404 by Arnold Segovia RN WRONG PT
--- NOTE | 2019-11-22 05:31 | NUR ---
PT RESTED DURING THE NIGHT ,DENIES THE PAIN PT HAD 4 TIMES LOOSE STOOL CALL LIGHT WITH IN REACH CONTINUE TO MONITOR
[2019-11-22] MEDS: BISACODYL 10 MG SUPP PR ONE (07:36)
--- NOTE | 2019-11-22 07:38 | NUR ---
BEDSIDE REPORT GIVEN TO THE ONCOMING NURSE
--- NOTE | 2019-11-22 08:59 | NUR ---
pt to day reports no abdominal pain has been able to urinate has no clots penis and testes normal no swelling or pain discussed case with dr cas delgado on flomax bid will see in office in 2-3 weeks psa pending had cancer of prostate diagnosed i 2016 and was lost to follow up
[2019-11-22] MEDS: TIMOLOL MALEATE 0.5% OPTH DRP 5 ML BTL OU SCH ×2 (09:00→22:12)
[2019-11-22] MEDS ORDERED: BISACODYL 5 MG TAB EC PO SCH (09:00)
[2019-11-22] MEDS: TAMSULOSIN HCL 0.4 MG CAP PO SCH ×2 (09:00→22:12)
--- NOTE | 2019-11-22 10:20 | NUR ---
call to dr. nava, about procedure, since pt is having multiple B/Ms.
--- NOTE | 2019-11-22 15:45 | NUR ---
Nutrition Screen Note RD Recommendation for Physician: - Continue current diet Plan of Care: RD following, monitoring for tolerance and adequacy Nutrition reason for involvement: LOS Primary Diagnose(s): partial small bowel obstruction PMH: HTN, HLD, cholecystectomy, hernia repair Ht: 72 in Wt: 250 lb BMI: 33.9 kg/m2 IBW: [address] Assessment: (11/21) 84 YOM admitted for partial SBO requiring laparoscopic bowel resection, NABIL, and incisional hernia repair. 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 Pt with 50-75% meal intake since surgery, denies any GI distress currently. LBM 11/21, reports some loose stools yesterday. Pt denies any wt loss. Pt with no questions or concerns at time of visit. Chart reviewed. Labs and meds reviewed. Will continue to monitor. Current Diet: GI soft Malnutrition Evaluation (11/22/19) The patient does not meet criteria for a specified degree of malnutrition at this time. Will re-evaluate at follow-up as appropriate. Diet Education Needs Assessment: Diet education not indicated. Diet tolerance: tolerating po Nutrition Care Level: low Signed: Angi Phan RD, LD, [facility]
--- NOTE | 2019-11-22 19:19 | NUR ---
report given to oncoming nurse, resp evn and unlabored at this time no distress noted, walking rounds complete.
--- NOTE | 2019-11-22 19:46 | NUR ---
RECEIVED PT IN THE ROOM WALKING ,NO ACUTE DISTRESS .DENIES PAIN CALL LIGHT WITH IN REACH ,CONTINUE TO MONITOR
[2019-11-22] MEDS: TRAVOPROST(OPTH) 2.5 ML BTL OP SCH (22:11)
--- NOTE | 2019-11-22 22:23 | Progress Note ---
DATE: 11/22/2019 SUBJECTIVE: Tolerating p.o. The patient was constipated, however, now with multiple BMs after laxative. The patient is able to urinate now and the hematuria is getting better. OBJECTIVE: VITAL SIGNS: Temperature 97.8, pulse 79, respiratory rate 18, and blood pressure 100/45. GENERAL: No acute distress. SKIN: No rash. LUNGS: Clear. HEART: Regular rate and rhythm. Normal S1 and S2. GI: Abdomen is soft and nondistended. NEUROLOGIC: Alert and oriented x3. PSYCHIATRIC: No hallucination. LABORATORY DATA: PSA is 7.2. ASSESSMENT AND PLAN: 1. Small bowel obstruction, postop day #5, lysis of adhesion and hernia repair. The patient is tolerating soft diet. 2. Constipation. We will proceed with barium enema per Dr. Lozano. 3. Urinary retention with history of prostate cancer. I have discussed with Dr. Foster. The patient is now voiding without the catheter. The patient will follow up with Dr. Foster as an outpatient. We will continue Flomax twice a day. 4. Hypertension, stable. 5. Gastrointestinal and deep venous thrombosis prophylaxis. No chemical deep venous thrombosis prophylaxis given mild hematuria, although he is getting better. 6. Disposition. The patient may be able to go home after barium enema, if it is unremarkable. MD BAO Caicedo/MELISSA /[id number]
[2019-11-23] VITALS: BP 137/87
[2019-11-23 04:00] VITALS: BP 142/79
--- NOTE | 2019-11-23 06:07 | NUR ---
PT RESTED DURING THE NIGHT AND DENIES PAIN ,NO ACUTE DISTRESS NOTED ,CALL LIGHT WITH IN REACH ,CONTINUE TO MONITOR
--- NOTE | 2019-11-23 07:14 | NUR ---
BEDSIDE REPORT GIVEN TO THE ONCOMING NURSE
[2019-11-23 08:00] VITALS: BP 130/74
[2019-11-23 08:25] VITALS: BP 130/74
[2019-11-23] MEDS: TAMSULOSIN HCL 0.4 MG CAP PO SCH (09:00)
[2019-11-23] MEDS: TIMOLOL MALEATE 0.5% OPTH DRP 5 ML BTL OU SCH (09:39)
[2019-11-23] MEDS ORDERED: DIATRIZOATE MEGL/DIATRIZOA SOD 120 ML BTL PO ONE ×2 (10:21→10:46)
--- NOTE | 2019-11-23 11:19 | NUR ---
PT IS BACK FROM BARIUM ENEMA
[2019-11-23 11:46] VITALS: BP 133/80
--- NOTE | 2019-11-23 13:19 | Diagnostic Imaging Report ---
EXAM: FL BARIUM ENEMA AIR AND BARIUM DOUBLE CONTRAST INDICATION: Constipation COMPARISON: Abdomen and pelvis CT of 11/15/2019 FINDINGS: WIDE AREA NETWORK SYSTEMS ADMINISTRATOR: The bowel gas pattern is non-obstructive. Multiple bilateral pelvic phleboliths noted RECTUM: Mucosa: Unremarkable. Distensibility: Normal. No large stool burden in the rectum. Due to patulous nature of the patient's rectum, there was persistent contrast leakage around the balloon tip of the rectal catheter and contrast could not be retained to further opacify the sigmoid colon and further proximally. Fluoroscopy Time: 0.02 minutes Radiation dose: 478mGy IMPRESSION: Due to patulous nature of the patient's rectum, there was persistent contrast leakage around the balloon tip of the rectal catheter and contrast could not be retained to further opacify the sigmoid colon and further proximally. The opacified portions of the rectum appear normal without stricture, mass, extravasation, filling defect, or increased stool burden. The above findings were discussed with Dr. Lozano on 11/23/2019 1:07 PM, who responded indicating that the communication was understood. Signed by: Clarence Alvarado MD on 11/23/2019 1:16 PM
[2019-11-23] MEDS ORDERED: FLOMAX0.4 MG PO (14:37)
[2019-11-23 16:00] VITALS: BP 162/86
--- NOTE | 2019-11-23 23:48 | Discharge Summary ---
PRIMARY CARE DOCTOR: Dr. Blake Dickson. FINAL DIAGNOSIS: Small bowel obstruction. SECONDARY DIAGNOSES: 1. Hypertension. 2. Urinary retention. 3. Prostate cancer. 4. Hypertension. CONSULTANTS: 1. Dr. Lozano, Surgery. 2. Dr. Herson Foster, Urology. PROCEDURES/STUDIES PERFORMED: CT of the abdomen and lysis of adhesion and hernia repair. HISTORY: Per dictated H and P. HOSPITAL COURSE: The patient was admitted with n.p.o., NG tube suctioning. The patient was not improving. Therefore, the patient was taken to the OR for lysis of adhesion and hernia repair. The patient did well. Today is postop day #6. The patient is tolerating soft diet. The patient will follow up with Dr. Lozano in one week and at that time, the keo will be removed. The patient also had urinary retention. Dr. Foster was consulted. Initially, Griffith catheter was placed. Subsequently, this was removed and the patient is voiding. The patient will follow up with Dr. Foster in 2 to 3 weeks. His Flomax has been increased to twice a day. The patient was seen and examined today. It took 32 minutes total to discharge this patient. CONDITION ON DISCHARGE: Improved. DISCHARGE MEDICATIONS: Please see medication reconciliation form. MD BAO Caicedo/MELISSA /[id number] cc: Blake PUENTE
== END 2019-11-23 16:13 | disposition home or self-care (01) | DRG 354 ==
LOC: ER 20:25 → ERHOLD 23:21 → MED/SURG3 11-16 11:27 → OBSVTOIN 11-16 16:35 → MED/SURG 11-19 18:03 → MED/SURG3 11-21 13:32
PROVIDERS: ADMIT Internal Medicine; ATTEND Internal Medicine
PROC: 0WQF0ZZ Repair Abdominal Wall, Open Approach (ICD-10-PCS; principal; 2019-11-17 13:30)
DX: K56.51 Intestinal adhesions [bands], with partial obstruction (principal); T83.83XA Hemorrhage due to genitourinary prosthetic devices, implants and grafts, initial encounter; D69.9 Hemorrhagic condition, unspecified; I10 Essential (primary) hypertension; E78.5 Hyperlipidemia, unspecified; C61 Malignant neoplasm of prostate; Z90.49 Acquired absence of other specified parts of digestive tract; Z82.49 Family history of ischemic heart disease and other diseases of the circulatory system; D69.6 Thrombocytopenia, unspecified; K59.00 Constipation, unspecified; Z11.59 Encounter for screening for other viral diseases
CPT/HCPCS: 36415; 74018; 74177; 74270; 80048; 80053; 81001; 82948; 83690; 83735; 84152; 84484; 85025; 85730; 87086; 93005; 99284; G0378; J0330; J1100; J1644; J2001; J2270; J2405; J2710; J3010; J7030; Q9963; Q9967

== ENCOUNTER → 2020-03-08 | Emergency (ER) | payer MEDICARE, OTHER ==
[~2020-03-08] VITALS: Ht 182.9 cm; Wt 104.3 kg
[~2020-03-08] MED LIST: AMLODIPINE BESY10 MG PO; ASPIRIN 81 MG CHEW TAB PO ONE; ATORVASTATIN CA40 MG PO; BETIMOL5 M1 OU; CARVEDILOL25 MG PO; FLOMAX0.4 MG PO; LOSARTAN POTAS100 MG PO; MORPHINE SULFATE INJ 4 MG/ML INJ 1ML IV STA; NEOMYC-POLYM-DEX5 ML OU; SODIUM CHLORIDE 0.9% 1000ML 1,000 ML IV SCH; TAMSULOSIN PO; TRAVATAN Z5 ML OU; ULTRAM50 MG PO
[2020-03-08 10:08] LABS: BASOPHILS % 0.2 % (0.0-1.0); EOSINOPHILS % 0.1 % (0.0-6.0); HEMATOCRIT 38.7 % (38.2-49.6); HEMOGLOBIN 13.1 g/dL (14.0-18.0); LYMPHOCYTES # (AUTO) 0.4 (1.0-3.2); LYMPHOCYTES % 2.7 % (18.0-39.1); MEAN CORPUSCULAR HEMOGLOBIN 29.4 pg (28-32); MEAN CORPUSCULAR HGB CONC 33.9 g/dL (31-35); MEAN CORPUSCULAR VOLUME 86.8 fL (81-99); MONOCYTES # (AUTO) 1.3 (0.2-0.8); MONOCYTES % 9.6 % (4.4-11.3); NEUTROPHILS # (AUTO) 11.3 (2.1-6.9); NEUTROPHILS % 86.9 % (38.7-80.0); PLATELET COUNT 182 x10e3/uL (140-360); RED BLOOD COUNT 4.46 x10e6/uL (4.3-5.7); RED CELL DISTRIBUTION WIDTH 13.4 % (11.7-14.4)
[2020-03-08 10:36] LABS: ALBUMIN 2.6 g/dL (3.5-5.0); ALBUMIN/GLOBULIN RATIO 0.7 (0.8-2.0); ANION GAP 12.1 mmol/L (8-16); CALCIUM 8.3 mg/dL (8.4-10.2); CREATININE, SERUM 1.95 mg/dL (0.72-1.25); POTASSIUM 4.1 mmol/L (3.5-5.1)
[2020-03-08 10:44] LABS: CREATINE KINASE MB 0.4 ng/mL (0-5.0)
[2020-03-08 11:08] LABS: LYMPHOCYTES % (MANUAL) 1 % (19-48); MONOCYTES % (MANUAL) 5 % (3.4-9.0); NEUTROPHILS % (MANUAL) 93 % (40-74); PLATELET ESTIMATE ADEQUATE; PLATELET MORPHOLOGY COMMENT NORMAL; RBC MORPHOLOGY COMMENT NORMAL
[2020-03-08 11:49] VITALS: BP 150/90
== END | disposition home or self-care (01) ==
LOC: ER 09:33
DX: N28.9 Disorder of kidney and ureter, unspecified (principal); I10 Essential (primary) hypertension; E78.5 Hyperlipidemia, unspecified; R01.1 Cardiac murmur, unspecified; Z85.46 Personal history of malignant neoplasm of prostate
CPT/HCPCS: 36415; 70450; 71045; 72125; 72192; 80053; 82550; 82553; 84484; 85025; 99284; J2270; J7030

== ENCOUNTER → 2020-07-20 | Outpatient (CLI) | payer MEDICARE, OTHER ==
[~2020-07-20] MED LIST changes: -ASPIRIN 81 MG CHEW TAB PO ONE; -MORPHINE SULFATE INJ 4 MG/ML INJ 1ML IV STA; -SODIUM CHLORIDE 0.9% 1000ML 1,000 ML IV SCH
== END ==
LOC: RAD 13:49
PROVIDERS: ATTEND Family Medicine
DX: M79.602 Pain in left arm (principal); M79.601 Pain in right arm; R60.9 Edema, unspecified; J90 Pleural effusion, not elsewhere classified
CPT/HCPCS: 71046; 93970